=== PATIENT | female | born 1980 | race Caucasian/White ===

== ENCOUNTER 2020-05-02 14:29 | Emergency (ER) | payer OTHER ==
[~2020-05-02] VITALS: Ht 167.6 cm; Wt 75.0 kg
[2020-05-02] MEDS ORDERED: LEVETIRACETAM 500MG PREMIX 100 ML IV ONE (15:15)
[2020-05-02] MEDS ORDERED: ACETAMINOPHEN 325MG TABLET PO ONE (15:15)
[2020-05-02] MEDS ORDERED: LIDOCAINE 1%/EPI 1:100,000 10 ML VIAL IJ ONE (15:15)
[2020-05-02] MEDS ORDERED: TETANUS, DIPHTHERIA, PERTUSSIS VAC/PF 0.5ML (>7YR OLD) IM ONE (15:15)
[2020-05-02 15:26] LABS: HEMATOCRIT. 35.2 % (36.0-48.0); HEMOGLOBIN. 11.2 g/dL (12.0-16.0); MEAN CORPUSCULAR HEMOGLOBIN 25.2 pg (28.0-32.0); MEAN CORPUSCULAR VOLUME 79.6 fL (81.0-99.0); MEAN PLATELET VOLUME 8.5 fl (7.4-10.4); PLATELET 233 x1000/uL (130-400); RED BLOOD CELL COUNT 4.42 mill/uL (4.2-5.4); RED CELL DISTRIBUTION WIDTH 16.3 % (11.6-14.6)
[2020-05-02 15:35] LABS: CHLORIDE 105 mEq/L (98-107)
[2020-05-02 15:38] LABS: ETHANOL BLOOD < 10 mg/dL
[2020-05-02 15:47] LABS: PLATELET ESTIMATE NORMAL
[2020-05-02 16:36] LABS: HCG SCREEN NEGATIVE
[2020-05-02] MEDS ORDERED: LIDOCAINE HCL/EPINEPHRINE 1%-EPI 1:100,000 50 ML VIAL INFIL NR (16:45)
[2020-05-02 17:00] VITALS: BP 146/85
== END 2020-05-02 17:40 | disposition home or self-care (01) ==
LOC: ER 14:45
DX: S01.511A Laceration without foreign body of lip, initial encounter (principal); S93.401A Sprain of unspecified ligament of right ankle, initial encounter; R56.9 Unspecified convulsions; F17.210 Nicotine dependence, cigarettes, uncomplicated; Z88.1 Allergy status to other antibiotic agents; Z88.8 Allergy status to other drugs, medicaments and biological substances; Z95.0 Presence of cardiac pacemaker; X58.XXXA Exposure to other specified factors, initial encounter; Y93.89 Activity, other specified; Y92.89 Other specified places as the place of occurrence of the external cause; Y99.8 Other external cause status
CPT/HCPCS: 12011; 36415; 70450; 73610; 80053; 80320; 84703; 85025; 90471; 90715; 93005; 96365; 99285; J1953; J3490; Z7610; G0480

== ENCOUNTER 2020-08-01 17:22 | Emergency (ER) | payer MEDICAID, OTHER ==
[~2020-08-01] VITALS: Ht 167.6 cm; Wt 68.0 kg
[2020-08-01 17:28] VITALS: BP 143/87
== END 2020-08-01 18:50 | disposition left against medical advice (07) ==
LOC: ER 17:22
DX: R11.10 Vomiting, unspecified (principal); H57.12 Ocular pain, left eye; I49.9 Cardiac arrhythmia, unspecified; Z53.21 Procedure and treatment not carried out due to patient leaving prior to being seen by health care provider
CPT/HCPCS: 93005